=== PATIENT | female | born 1985 | race Caucasian/White ===

== ENCOUNTER 2021-07-16 14:20 | Outpatient (CLI) | payer BC, SELFPAY ==
--- NOTE | 2021-07-16 14:50 | DI.RAD_ITS ---
Exam(s) XR KNEE LT 3V AP,LAT,CANDI EXAM: XR KNEE LT 3V AP,LAT,CANDI CLINICAL HISTORY: LT KNEE EFFUSION M25.462. TECHNIQUE: 2D digital imaging was performed of the left knee. Three images were obtained. AP, late ral, Merchant and PA tunnel views were obtained. COMPARISON: No exams were available for comparison FINDINGS: BONES: No acute fracture is present. No bony destructive lesion is seen. JOINTS: The knee is normally aligned. There is a moderate-sized joint effusion. SOFT TISSUE: Normal. IMPRESSION: Moderate joint effusion. DATA REPOSITORY: RADIATION DOSE DELIVERED:
== END 2021-07-16 14:40 ==
PROVIDERS: Visit Provider Family Medicine
DX: M25.462 Effusion, left knee (principal)
CPT/HCPCS: 73562

== ENCOUNTER 2021-09-01 09:41 | Outpatient (CLI) | payer BC, SELFPAY ==
--- NOTE | 2021-09-01 07:13 | DI.MRI_ITS ---
Exam(s) MR LOWER JOINT LT WO EXAM: MR LOWER JOINT LT WO CLINICAL HISTORY: left knee injury continues to give out/ swelling,PAIN,M25.562,S83.412A,MCL. TECHNIQUE: Multiplanar multisequence MRI was performed. COMPARISON: CR XR KNEE LT 3V AP,LAT,CANDI from 07/16/2021 FINDINGS: BONES: Edema in the lateral femoral condyle. Some flattening at the articular surface with cysts sli ght declare video. Overlying cartilage is denuded. Findings could represent acute cartilage injury injury versus longstanding degenerative process. Is also high signal in a posterior aspect of the la teral tibial plateau which could represent a bone contusion. Cartilage overlying medial femoral cond yle and medial tibial plateau as well as patella appear intact.. JOINTS: Moderate size effusion is present. TENDONS: Extensor mechanism: Unremarkable. Medial retinaculum: Unremarkable. Lateral retinaculum: Unremarkable. Popliteus: Unremarkable. MUSCLES: Edema distal quadriceps. MENISCI: The medial meniscus is unremarkable. The lateral meniscus is unremarkable. SOFT TISSUES: Edema in the subcutaneous fat, greater anteriorly and medially. LIGAMENTS: Anterior Cruciate: Prior ACL repair. The ACL graft appears disrupted. Posterior Cruciate: Unremarkable. Medial Collateral:Marked edema around the femoral attachment of the medial collateral ligament Lateral Collateral: Unremarkable. OTHER: Postsurgical artifacts near patellar tendon. IMPRESSION: Disruption anterior cruciate ligament graft. Severe sprain versus of the medial collateral ligament near the femoral attachment. Marked cartilage thinning of the lateral femoral condyle acute versus chronic. Apparent contusions of the lateral femoral condyle and lateral tibial plateau. DATA REPOSITORY:
== END 2021-09-01 10:01 ==
PROVIDERS: PCP Physician Assistant Medical; Visit Provider Student in an Organized Health Care Education/Training Program
DX: M25.562 Pain in left knee (principal); S83.412A Sprain of medial collateral ligament of left knee, initial encounter; M25.462 Effusion, left knee; Z98.890 Other specified postprocedural states; M94.8X6 Other specified disorders of cartilage, lower leg
CPT/HCPCS: 73721

== ENCOUNTER 2021-12-28 02:33 | Outpatient (CLI) | payer BC, SELFPAY ==
[2021-12-28 12:15] LABS: Source Nasal/Nares
[2021-12-28 14:37] LABS: COVID-19 PCR Negative (Negative)
== END 2021-12-28 02:34 | disposition home or self-care (01) ==
LOC: LBO 02:33
PROVIDERS: PCP Physician Assistant Medical; Visit Provider Student in an Organized Health Care Education/Training Program
DX: Z20.822 Contact with and (suspected) exposure to COVID-19 (principal); Z01.818 Encounter for other preprocedural examination
CPT/HCPCS: 87635

== ENCOUNTER 2021-12-30 07:12 | Day surgery (SDC) | payer BC, SELFPAY ==
[2021-12-30] VITALS (12 sets, daily range): BP systolic 90–118; BP diastolic 51–77; PULSE 53–90; RESP 12–20; TEMP 36.3–36.8; O2SAT 96–100; BMI 25.4
[2021-12-30] MEDS: Lactated Ringers 1,000 ML 100 ML IV ×2 (08:15→14:04)
--- NOTE | 2021-12-30 08:30 | W.ANESPRE ---
General Info Date of Service Date Performed: 12/30/21 Height: 5 ft 9 in Weight: 78.1 kg Body Mass Index (BMI): 25.4 Surgical Procedure: Operation Date: 12/30/21 09:40 Proposed Procedure Side Surgeon p Knee ACL Reconstruction, Allograft and any meniscal, chondral or synovial surgery Left Juvenal Crouch MD Meds Allergies and Home Medications Allergies Allergy/AdvReac Type Severity Reaction Status Date / Time Sulfa (Sulfonamide Allergy Severe Hives Unverified 12/30/21 07:31 Antibiotics) Home Medication Medication Instructions Recorded aspirin 81 mg tablet,delayed 81 mg PO DAILY Prevent blood clot 12/30/21 release 14 days #14 tabs naproxen 250 mg tablet 250 - 500 mg PO BID PRN #40 tabs 12/30/21 oxycodone 5 mg tablet 5 - 10 mg PO Q4H PRN moderate to 12/30/21 severe pain #18 tabs Current Visit Medications: Current Medications Generic Name Dose Route Start Last Admin Trade Name Freq PRN Reason Stop Dose Admin Ringer's Solution 1,000 mls @ 100 mls/hr 12/30/21 06:00 12/30/21 08:15 IV 01/28/22 23:59 100 mls/hr INFUSION AMANDA Administration Cefazolin Sodium/Dextrose 2 gm in 50 mls @ 100 mls/hr 12/30/21 06:00 Ancef Duplex IVPB 01/28/22 23:59 PREOP AMANDA IV Miscellaneous Supplies 1 each 12/30/21 06:00 Iv Access IV 01/28/22 23:59 DIRECTED AMANDA Naproxen 250 - 500 mg 12/30/21 07:08 Naproxen 500 Mg Tab PO BID PRN PRN Oxycodone HCl 5 - 10 mg 12/30/21 07:08 Oxycodone 5 Mg Tab PO Q4H PRN PRN Sodium Chloride 0 ml 12/30/21 06:00 Normal Saline Flush 10 Ml Syr IV 01/28/22 23:59 PRN PRN Sodium Chloride 0 ml 12/30/21 06:00 Normal Saline 10 Ml Vial IJ 01/28/22 23:59 DIRECTED PRN Sterile Water 0 ml 12/30/21 06:00 Water,Injection,Sterile 10 Ml Vial IJ 01/28/22 23:59 DIRECTED PRN PFSH Active Problems Active Problems: Problem Status Onset Code Vaginal delivery 05/13/13 O80 MCL sprain of left knee S83.412A History of repair of ACL Z98.890 Left ACL tear S83.512A 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 Tonsillectomy and adenoidectomy CHILD `25 YRS AGO Tobacco Smoking/Tobacco Use Status: Never Alcohol Alcohol Intake: current Alcohol intake frequency: holidays/special occasions only Substance Use Substance use: Never Substance use type: does not use Vital Signs and Lab Results Vital Signs Most Recent Vital Signs in EMR: Most Recent Vital Signs Temp Pulse Resp BP Pulse Ox 36.6 C 90 17 116/75 100 12/30/21 07:51 12/30/21 07:51 12/30/21 07:51 12/30/21 07:51 12/30/21 07:51 Point of Care Results Point of Care Results: POC- Test(urine) Negative 12/30/21 07:56 Lab Results Blood Type / Crossmatch: No Data to Display Complete Blood Count: No Data to Display Complete Metabolic Panel: No Data to Display Liver Function Panel: No Data to Display Coagulation Panel: No Data to Display Cardiac Panel: No Data to Display Arterial Blood Gas: No Data to Display Venous Blood Gas: No Data to Display Pancreas Panel: No Data to Display Thyroid Panel: No Data to Display Infectious Disease: Coronavirus (COVID-19)(PCR) Negative (Negative) 12/28/21 08:32 Coronavirus 2019 Source Nasal/Nares 12/28/21 08:32 Blood Cultures: No Data to Display Toxicology Panel: No Data to Display Panel: No Data to Display Anesthesia Assessment and Plan Anesthesia History Personal History: No History of Anesthesia Complications Family History: No Family History of Anesthesia Complications Exercise Tolerance Exercise Tolerance: Metabolic Equivalents>4 Pertinent Negatives Pertinent Negatives: No Symptoms of GERD, No Major Cardiovascular Symptoms or Complaints and No Major Pulmonary Symptoms or Complaints Cardiac & Pulmonary Exam Cardiac Exam: Normal S1/S2 Heart Sounds Pulmonary Exam: Clear Bilateral Breath Sounds Implantable Cardiac Device Does patient have a Pacemaker or an ICD?: No Airway Exam Known Difficult Airway: No Mallampati Class: 2 Mouth Opening: Normal (> 3cm) Thyromental Distance: Greater than 3 cm Neck Range of Motion: Full ROM Neck Circumference: Normal Teeth Condition: Normal Dentition ASA Classification ASA Score: ASA 2 Emergency Case?: No NPO Status NPO Status: NPO Clears >2 hours, Solids >8 hours Status Status: Negative HCG Anesthesia Plan Resuscitation Status: Full Code Anesthesia Technique: General Anesthesia Airway Planned: Endotracheal Tube Pain Management: Surgeon and patient request nerve block Monitors Used: Standard Monitors
--- NOTE | 2021-12-30 10:15 | W.ANESNERVE ---
Nerve Block Single Injection Procedure Date and Time Date Performed: 12/30/21 Procedure Start: 10:05 Location Where Procedure Performed Procedure Location: Day Surgery Unit Reason Performed: Postoperative Analgesia Requesting Provider: Juvenal Crouch Timeout Performed Timeout Performed: Yes Monitoring Used ECG, Blood Pressure, SpO2 and See EMR for corresponding vital signs Sterility Sterility: Hand Hygiene, Surgical Cap, Surgical Mask, Sterile Gloves and Chlorhexidine Sedation Given During Procedure Sedation Given (Indicate Dose Given): No Sedation given Patient Mental Status Patient Mental Status: Awake Nerve Block 1st Nerve Block: Laterality: Left Block Type: Adductor Canal Needle / Catheter Used: 100mm SonoPlex II Local Anesthetic Bolus (Indicate Dose Given): Injected in 3-5ml increments after negative blood aspiration and Bupivacaine 0.5% Dose:: 20 ml Additives (Indicate Dose Given): None Ultrasound: Sterile probe cover and gel used Ultrasound Image Saved?: Yes Nerve Stimulator: Not Used Paresthesia: None Procedure Tolerated: No Complications and Patient tolerated well Procedure Outcome: Successful Performed By: Juve Bermudez
[2021-12-30] MEDS: ceFAZolin 2 GM/50 ML BAG IVPB (10:32)
[2021-12-30] MEDS: Bupivacaine 0.5% Pres-Free W/EPI 10 ML VIAL (11:18)
[2021-12-30] MEDS: EPINEPHrine 30 MG/30 ML VIAL (13:31)
--- NOTE | 2021-12-30 14:06 | PDOC.DSDIS_ITS ---
Discharge Plan Disposition Patient Disposition: HOME Condition: Stable Discharge Details Reason For Visit: Left knee surgery Attending Provider: Juvenal Crouch Primary Care Provider: Chio Sparks Home Meds and New Rx's Prescriptions: New naproxen 250 mg tablet 250 - 500 mg PO BID PRNQty: 40 0RF Rx Instructions: take with a meal aspirin 81 mg tablet,delayed release (DR/EC) 81 mg PO DAILY 14 Days Qty: 14 0RF oxycodone 5 mg tablet 5 - 10 mg PO Q4H MDD 30 mg PRN (Reason: moderate to severe pain) Qty: 18 0RF Discharge Instructions Additional Instructions: Surgery: Left knee arthroscopy with quadriceps allograft revision ACL reconstruction, lateral meniscus repair, and synovectomy. Activity: For 6 weeks, keep your knee fully straight for walking (weightbearing as tolerated in full extension). Use crutches as needed for a few weeks. Restore full knee extension as soon as possible. Do not bend your knee past 90 degrees. After 6 weeks, gently advance to full flexion but avoid any weighted deep knee flexion for 8+ weeks. A physical therapy prescription will be sent electronically to start in 2 to 3 weeks. Prescriptions: Aspirin 81 mg take 1 daily to prevent a blood clot for 14 days Naproxen 250 mg take 1-2 every 12 hours with a meal as needed for moderate pain Oxycodone 5 mg take 1-2 every 4-6 hours as needed for severe pain You may use [id number] Tylenol (acetaminophen) as needed for mild pain. These pain medications may be taken all at once or in different combinations as needed. Also, recommend Colace (docusate) as a stool softener as surgery and pain medicine cause constipation. You may try [id number] diphenhydramine (Benadryl) 25-50 mg nightly as a sleep aid Dressings: Leave dressing in place for 5 days. May then remove and leave open to air or cover incisions with Band-Aids. May shower after 7 days. Follow-up: 10-[address] Crouch Let us know right away if you develop any redness, drainage, fevers, chest pain, or trouble breathing. Do not drink alcohol or drive for at least 24 hours after anesthesia. Please call the office during business hours with any questions or concerns. Referrals: Juvenal Crouch MD [ [facility] STAFF PHYSICIAN] - Discharge Orders Discharge Orders: Discharge Order (Routine); Ordered 12/30/21 Ordered By: Juvenal Crouch DS: Diagnosis Discharge Diagnosis (1) Left ACL tear: Status: Acute (2) Chondromalacia of lateral femoral condyle: Status: Acute (3) Tear of lateral meniscus of left knee: Status: Acute (4) MCL sprain of left knee: Status: Acute
--- NOTE | 2021-12-30 14:31 | W.PM.OP ---
Operative Note Operative Note DATE OF PROCEDURE: 12/30/21 PRE-OP DIAGNOSIS: Left knee: 1. ACL rupture 2. Lateral meniscus tear 3. Intercondylar synovitis, patellofemoral adhesions, and medial and lateral gutter synovial plica PROCEDURE: Right knee: 1. Revision ACL reconstruction, CPT #84739: Quadriceps allograft 2. Lateral meniscus repair, CPT #73043 3. Extensive synovectomy, CPT #89190: Intercondylar, patellofemoral, and medial and lateral gutters SURGEON: Juvenal Crouch CINDER PIT WORKER: Beryl Landers ANESTHESIA TYPE: Local By Surgeon, General LMA/ETT and Primary Nerve Block Refer to Anesthesia Record ESTIMATED BLOOD LOSS: 10 TOURNIQUET TIME: 0 COMPLICATIONS: None Patient was transported to: PACU Patient's condition: stable Implants: Arthrex ACL TightRope II RT and ABS with 8 x 12 mm cortical button QuadLink pre-sutures quadriceps allograft: 10 x68 mm 0.9 mm suture tape lateral meniscus repair Indications: Please see complete medical record for details. Findings: Exam under anesthesia: Full range of motion. No significant instability to valgus stress in extension or flexion with solid end feel, but possibly a couple millimeters more laxity compared to the contralateral uninjured side. Positive Ronnie. Positive pivot glide. Arthroscopic findings: Moderate suprapatellar patellofemoral adhesions, medial and lateral gutter plica synovial adhesions, and intercondylar synovitis. Largely intact patellofemoral and medial articular cartilage. Localized distal lateral aspect lateral femoral condyle grade 2?3 chondromalacia. Intact medial meniscus. Intact PCL. Diminutive ACL remnant with minimal tissue in any anatomic location. Probable remnant high and vertical in the notch. Tibial orifice mild tunnel dilation. Posterior horn lateral meniscus complex tear. Procedure Description: In the operating room, general anesthesia was induced. The patient was positioned supine on the operating room table. All bony prominences were well-padded. Preoperative antibiotics were administered. The knee was prepped and draped in the usual sterile fashion. The correct patient, procedure, and side of the procedure were all verified prior to incision. Exam under anesthesia was performed. 20 cc of a 50:50 mixture of bupivacaine and lidocaine containing epinephrine was infiltrated about the planned anteromedial, anterolateral, lateral distal femoral, and pretibial surgery sites. The standard high and tight anterolateral and anteromedial portals were established and a complete diagnostic arthroscopy was performed with relevant findings detailed above. A passport cannula was inserted in both the anteromedial and anterolateral portals. The lateral meniscus tear was probed. The posterior horn had white zone vertical tears on the superior leaflet with fraying throughout the posterior horn near the popliteal hiatus around a large horizontal degenerative type meniscus tear. The white zone superior leaflet tears were resected to a stable margin using meniscal biters and mechanical shaver. The remaining red-white and red zone tissue was inspected about the horizontal tear. The tear propagated near the capsular margin so full resection would have involved essentially subtotal posterior horn meniscectomy. Instead, given patient young age and concomitant ACL surgery decision was made to proceed with repair. The meniscal rasp was used to abrade throughout the horizontal margin tissue to stimulate healing. The knee scorpion was brought in and used to pass a mini suture tape in a simple stitch fashion around the central aspect of the horizontal tear. The sutures demonstrated good tissue hold strength. They were secured with an SMC arthroscopic knot and the knot pusher used to carefully directed the small knot stack to the superior posterior capsular margin. The horizontal tear was well opposed and remaining meniscus did not demonstrate any additional significant tearing. In the intercondylar area, the knee minimal high vertical ACL remnant was inspected only minimally debrided as necessary to view in place graft in the proper position on the lateral wall. There was essentially an entirely empty lateral wall. A thin wisp of tissue traveled from about 12:00 down over the PCL vertically and did not have much integrity or continuity to the tibial side. There was a noticeable area of bone defect and softening around a reasonable tibial tunnel location and significant synovitis in the anterior intercondylar area. A small notchplasty was performed to allow proper visualization and probing of the elmm-biq-vmb position. There is scarring or remnant adhesions that had to be carefully removed with radiofrequency ablator, curette, mechanical shaver prior to restoring reasonable anatomic landmarks. A curette was used to confirm proximal and posterior articular margins and chris the optimal location for anatomic femoral tunnel placement with some bone softening in this position as well but no obvious prior tunnel nearby. The graft was measured and prepared on the back table. The TightRope II BTB and TightRope II ABS adjustable-loop cortical suspensory fixation implants were loaded on QuadLink pre-sutured quadriceps allograft. The femoral and tibial ends each measured 10 mm diameter. The graft was marked at 20 mm from each end just past the sutures on the ABS side, the tensioning sutures were marked and a shuttle suture was added. The graft was manually tensioned and the construct did not demonstrate any elongation. The graft was then compressed in a graft tube and covered with vancomycin soaked sponges. The femoral guide was then placed through the anterolateral portal carefully targeting the appropriate anatomic ACL origin. The outer 9 mm diameter of the guide was positioned with a few millimeters of space between the proximal and posterior articular margins. On the lateral thigh, drill guide position and angle adjusted to about 60 degree angle to the longitudinal axis of the femur in the coronal plane and 20 degree angle to the trans-epicondylar axis in the axial plane to create the most optimal femoral socket. Knife and snap were used to open the skin and IT band and placed the drill guide on bone while maintaining appropriate position on the lateral wall. The tunnel length was noted to be used for marking and passing the femoral button. The flip cutter was then drilled to the appropriate location. The drill guide malleted 7 mm into the cortex. The remainder of the targeting guide removed. The FlipCutter was deployed to 10 mm and retrograde reaming done to a depth of 30 mm. Bony debris was removed with the shaver. The flip cutter was then closed, withdrawn, and a FiberStick used to pass a #2 FiberWire shuttle stitch, which was withdrawn out the anterolateral portal. Appropriate posterior and distal wall and socket creation could be visualized with the knee in flexion. The tibial guide was then used to target the anatomic ACL insertion through the anteromedial portal. Significant anterior intercondylar adhesions and possible graft remnant or cyclops type tissue had debris removed with the radiofrequency ablator and mechanical shaver The drill angle adjusted to 60 degrees and a pretibial incision made. The drill guide was placed on bone, tunnel length noted, and the flip cutter drilled to the appropriate location near the center of the prior tunnel orifice. The drill guide malleted 7 mm into the cortex. The remainder of the targeting guide removed. The FlipCutter was deployed to 10mm and retrograde reaming done to a depth of 30 mm. Bony debris was removed with the shaver. The new socket was slightly eccentric to the prior tunnel position with some enlargement due to prior placement and dilation posteriorly and medially. Flip cutter was then closed, withdrawn, and a FiberStick used to pass a #2 FiberWire shuttle stitch, which was withdrawn out the anteromedial portal. The mechanical shaver was used to remove bone debris as well as chamfer and remove soft tissue from the edges of the sockets. A femoral shuttle sutures were withdrawn out the anterior medial portal. The PassPort was removed. This portal dilated to accommodate the graft size. The graft was brought over to the knee and the femoral sutures shuttled out the lateral thigh and advanced until the button was near cortex. Under arthroscopic visualization with the knee slightly hyperflexed, and the button was then passed and flipped on the far cortex. Counter traction was then maintained on the tibial side of the graft while it was carefully advanced into the knee and then about 15 mm into the femoral socket. The tibial sutures were then shuttled through the tibial tunnel and passing stitch moved while carefully noting the tension stitches. The graft was then dunked about 15 mm into the tibial socket. The ABS button was then loaded to the ABS loop and tension sutures used to bring the cortical button down to bone. The graft advanced about 20 mm into each socket and then provisionally tensioned on both the femoral and tibial sides. The knee was then cycled 22 times and final tightening done with the knee in full extension and a moderate reverse Ronnie maintained. The graft position and tension were appropriate. There was no impingement in full extension. There was a millimeter or so of widening at the orifice of the tibial tunnel relative to the graft due to the prior tunnel. Ronnie exam was stable. Femoral passing sutures were removed. Backup knots were then tied on both sides and suture tails cut. With the knee in full extension, attention was turned to the suprapatellar adhesions and an plica in the medial and lateral gutters. The meniscal biter was brought in and used to transect the synovial lesions and create a free edge for the mechanical shaver resection. The knee and all portals were copiously irrigated and then knee drained of arthroscopic fluid. 3-0 Monocryl was used to close the portals and small incisions in a buried interrupted fashion. Mastisol, Steri-Strips, Xeroform, 4 x 4 gauze, and sterile soft roll was applied. The extremity was wrapped gently with an Johnny bandage. A knee immobilizer was placed. The patient awoke from anesthesia without complication and was transferred to the recovery room in a stable condition.
--- NOTE | 2021-12-30 15:35 | W.ANESPOSTOP ---
Postoperative Evaluation Date, Time and Location Date Performed: 12/30/21 Time Performed: 15:35 Patient Location: PACU Vital Signs Most Recent Imported Vital Signs: Most Recent Vital Signs Temp Pulse Resp BP Pulse Ox 36.5 C 64 20 114/68 100 12/30/21 15:30 12/30/21 15:30 12/30/21 15:30 12/30/21 15:30 12/30/21 15:30 Pain Score Most Recent Pain Score: Most Recent Pain Score Pain Level 0 12/30/21 15:30 Assessment Mental Status: Awake (Alert & Oriented to Patient Baseline) Airway and Respiratory Function: Patent airway with normal (patient baseline) respiratory exam Cardiovascular Function: Hemodynamically Stable Hydration Status: Adequately Hydrated Nausea & Vomiting: No Nausea or Vomiting Pain: Pt. Denies Any Pain Peripheral Nerve Block: Regional nerve block not resolved at time of post operative discharge
== END 2021-12-30 16:39 | disposition home or self-care (01) ==
PROVIDERS: PCP Physician Assistant Medical; Visit Provider Student in an Organized Health Care Education/Training Program
PROC: (CPT 29888; principal; 2021-12-30 09:30)
DX: S83.512A Sprain of anterior cruciate ligament of left knee, initial encounter (principal); S83.282A Other tear of lateral meniscus, current injury, left knee, initial encounter; M94.262 Chondromalacia, left knee; M67.52 Plica syndrome, left knee; M23.8X2 Other internal derangements of left knee; W01.0XXA Fall on same level from slipping, tripping and stumbling without subsequent striking against object, initial encounter
CPT/HCPCS: 29888; 29882; 76942; 81025; J0690; J1100; J1885; J2405

== ENCOUNTER 2023-08-14 05:14 | Outpatient (CLI) | payer BC, SELFPAY ==
[2023-08-14 11:02] LABS: Panorama Kit Sent via Fed Ex
[2023-08-14 11:11] LABS: Abs Immature Grans 0.03 10^3/uL (0.0-0.06); Absolute Basophil Count 0.03 10^3/uL (0.0-0.2); Absolute Eosinophil Count 0.18 10^3/uL (0.0-0.7); Absolute Lymphocyte Count 1.67 10^3/uL (1.2-3.4); Absolute Monocyte Count 0.57 10^3/uL (0.1-0.8); Absolute Neutrophil Count 4.74 10^3/uL (1.2-6.7); Basophils % 0.4; Eosinophils % 2.5; HCT 37.2 % (36.0-46.0); HGB 12.9 g/dL (11.2-15.7); Immature Grans % 0.4; Lymphocytes % 23.1; MCHC 34.7 % (32.0-36.0); MCV 84 fL (80-95); Monocytes % 7.9; Neutrophils % 65.7; Platelet Count 254 10^3/uL (130-400); RBC 4.45 10^6/uL (3.93-5.22); RDW 13.2 % (11.7-14.6); RDW-SD 40.5 fL; WBC 7.22 10^3/uL (4.4-10.8)
[2023-08-14 19:38] LABS: Hepatitis B Surface Ag Negative (Negative)
[2023-08-14 20:11] LABS: HIV-1/2 Ag & Ab Screen Negative (Negative)
[2023-08-14 20:15] LABS: Hepatitis C Ab w Rflx HCV PCR Negative (Negative)
[2023-08-15 11:46] LABS: Rubella IgG Ab (UVM) Positive (See Note); Varicella IgG Antibody Positive (See Note)
[2023-08-15 20:55] LABS: Syphilis IgG w/Reflex Nonreactive (Nonreactive)
== END 2023-08-14 05:15 | disposition home or self-care (01) ==
LOC: LBO 05:14
PROVIDERS: PCP Physician Assistant Medical; Visit Provider Advanced Practice Midwife
DX: Z34.91 Encounter for supervision of normal pregnancy, unspecified, first trimester
CPT/HCPCS: 36415; 86787; 86803; 86850; 86900; 86901; 87340; 87389; 85025; 86762; 86780

== ENCOUNTER 2023-08-14 11:40 | Outpatient (REF) | payer BC, SELFPAY ==
--- NOTE | 2023-08-14 10:00 | PAPFT_PTH ---
PATIENT: Mario Villafana LOC: [facility] U#:[id number] AGE/SX: 38/F ROOM: RE08/14/[address]: Theresa Chapin CNM : 1985 BED: DIS: 08/14/2023 SPEC #: [id number] RECD: 08/14/23 13:17 STATUS: LYDIA REEmma #: [id number] LORENA: 08/14/23 10:[address]: Theresa Chapin DEPT: FOR[facility], [facility]–1983 Cytology RECD BY: Linda Kidd ENTERED: 08/14/23 13:17 SP TYPE: PAPFT OTHR DR: Chio Sparks Tissues: 1 - CX/ENDOCX FOR PAP SMEARS Procedures: PAP THIN PREP/[facility] Screening HPV DNA PROBE Comments: [id number] (CHLAMYDIA/GC)
[2023-08-15 16:39] LABS: Chlamydia Result Negative (Negative); GC Result Negative (Negative)
== END 2023-08-14 11:41 | disposition home or self-care (01) ==
LOC: LBN 11:40
PROVIDERS: PCP Physician Assistant Medical; Visit Provider Advanced Practice Midwife
DX: Z01.419 Encounter for gynecological examination (general) (routine) without abnormal findings (principal)
CPT/HCPCS: 87491; 87591; 88142; 87624

== ENCOUNTER 2023-08-14 11:45 | Outpatient (REF) | payer BC, SELFPAY ==
[2023-08-14 15:25] LABS: *AMPHETAMINES SCREEN URINE Negative (Negative); *BARBITURATES SCREEN URINE Negative (Negative); *BENZODIAZEPINES SCREEN URINE Negative (Negative); Cannabinoids THC Negative (Negative); Cocaine Screen,Urine Negative (Negative); METHADONE URINE SCREEN Negative (Negative); OPIATES URINE SCREEN Negative (Negative)
[2023-08-14 15:26] LABS: Tricyclic Antidepressants Negative (Negative)
[2023-08-18 08:52] LABS: Buprenorphine Negative ng/mL (Cutoff: 5.0); Norbuprenorphine Negative ng/mL (Cutoff: 2.5)
== END 2023-08-14 11:46 | disposition home or self-care (01) ==
LOC: LBN 11:45
PROVIDERS: PCP Physician Assistant Medical; Visit Provider Advanced Practice Midwife
DX: Z34.91 Encounter for supervision of normal pregnancy, unspecified, first trimester (principal)
CPT/HCPCS: 80307; 80348; 87077; 87086

== ENCOUNTER 2023-11-28 05:37 | Outpatient (CLI) | payer BC, SELFPAY ==
[2023-11-28 10:13] LABS: HCT 31.6 % (36.0-46.0); HGB 10.8 g/dL (11.2-15.7); MCH 29.8 pg (27.0-33.0); MCHC 34.2 % (32.0-36.0); MCV 87 fL (80-95); MPV 8.6 fL (8.0-11.0); Platelet Count 182 10^3/uL (130-400); RBC 3.63 10^6/uL (3.93-5.22); RDW 12.9 % (11.7-14.6); RDW-SD 40.9 fL; WBC 8.49 10^3/uL (4.4-10.8)
[2023-11-28 10:27] LABS: Glucose,1 Hr (Glucola) 163 mg/dL (80-140)
== END 2023-11-28 05:38 | disposition home or self-care (01) ==
LOC: LBO 05:37
PROVIDERS: Advanced Practice Midwife; PCP Physician Assistant Medical; Visit Provider Advanced Practice Midwife
DX: Z34.92 Encounter for supervision of normal pregnancy, unspecified, second trimester (principal); Z3A.27 27 weeks gestation of pregnancy
CPT/HCPCS: 36415; 82950; 85027

== ENCOUNTER 2023-11-30 05:02 | Outpatient (CLI) | payer BC, SELFPAY ==
[2023-11-30 09:07] LABS: Glucose 1 Hour 149 mg/dL
[2023-11-30 10:58] LABS: Glucose 3 Hour 56 mg/dL
== END 2023-11-30 05:03 | disposition home or self-care (01) ==
LOC: LBO 05:02
PROVIDERS: Advanced Practice Midwife; PCP Physician Assistant Medical; Visit Provider Advanced Practice Midwife
DX: R73.09 Other abnormal glucose (principal)
CPT/HCPCS: 36415; 82951

== ENCOUNTER 2024-02-03 08:37 | Outpatient (CLI) | payer BC, SELFPAY ==
[2024-02-03 10:10] VITALS: BP 103/64; PULSE 96
[2024-02-03 10:43] VITALS: BP 103/64; PULSE 96; TEMP 36.4
--- NOTE | 2024-02-03 22:12 | W.OBNST ---
Date of service: 02/03/24 Time of Service: 22:13 NST Evaluation Reason for NST Reasons for Nonstress Test: OTHER, SEE COMMENT Reason for NST Other: Vision changes Gestational Age Gestational Age in Weeks and Days: 36 Weeks and 3Days Test and Monitor Explained Test/Monitor Explained: Test Explained, Monitor Explained and Patient Verbalized Understanding Vital Signs Blood Pressure: 103/64 Pulse: 96 Temperature: 97.5 F Urine Results Urine Protein: Negative Urine Ketones: Negative Urine Glucose: Negative Urine Blood: Negative NST Information Date on Monitor: 02/03/24 Time on Monitor: 10:09 Date off Monitor: 02/03/24 Time off Monitor: 10:42 Total Time on Monitor: 33 NST Interventions: PO Hydration, Reposition Patient and Notify Provider Contraction Frequency: 0 NST Evaluation Patient States Movement: Present FHR Baseline: 135 Variability: Moderate 6-25 bpm Accelerations: 15x15 Decelerations: None NST Results: Reactive Note Ultrasound Done: N/A. NST Note Note: Mario experienced a visual disturbance while looking at her phone during the night. She was instructed to come in for a blood pressure check and NST. BP was WNL and reactive NST. Follow up visit at [facility]. NST Reviewed and Verified by: Deborah Hutton
[2024-02-03 22:14] VITALS: BP 103/64; PULSE 96; TEMP 36.4
== END 2024-02-03 10:44 ==
LOC: BCD 08:39 → OBS 10:05
PROVIDERS: PCP Physician Assistant Medical; Visit Provider Advanced Practice Midwife
DX: O26.893 Other specified pregnancy related conditions, third trimester (principal); H53.9 Unspecified visual disturbance; Z3A.36 36 weeks gestation of pregnancy
CPT/HCPCS: 59025

== ENCOUNTER 2024-02-06 09:46 | Outpatient (CLI) | payer BC, SELFPAY ==
[2024-02-06 09:40] LABS: HCT 32.5 % (36.0-46.0); HGB 11.2 g/dL (11.2-15.7); MCH 29.9 pg (27.0-33.0); MCHC 34.5 % (32.0-36.0); MCV 87 fL (80-95); MPV 8.8 fL (8.0-11.0); Platelet Count 185 10^3/uL (130-400); RBC 3.74 10^6/uL (3.93-5.22); RDW 13.6 % (11.7-14.6); WBC 8.55 10^3/uL (4.4-10.8)
== END 2024-02-06 09:47 | disposition home or self-care (01) ==
LOC: LBO 09:47
PROVIDERS: PCP Physician Assistant Medical; Visit Provider Advanced Practice Midwife
DX: Z34.90 Encounter for supervision of normal pregnancy, unspecified, unspecified trimester (principal)
CPT/HCPCS: 36415; 85027

== ENCOUNTER 2024-02-14 22:41 | Observation (INO) | payer BC, SELFPAY ==
--- NOTE | 2024-02-14 23:33 | HPE_ITS ---
Date of service: 02/14/24 Time of Service: 23:10 Assessment and Plan Assessment and plan (1) False labor after 37 completed weeks of gestation: Status: Acute Assessment and plan: 1. Reviewed option to remain and be reassessed in 2-4 hours for cervical change. Patient prefer to go home and return with any increase in contraction intensity. Reports she will be able to sleep through these 2. Has follow up visit < 1 week 3. Plan to discharge to home per patient request. MARICEL OB-HPI Labor/Delivery History of Present Illness Reason for Visit: Uterine contractions Chief Complaint: Uterine Contractions. CAROLANN Calculator Estimated Delivery Date Method Current WG Current Estimate 02/28/24 LMP (Certain) 38w 0d Other Estimates 02/28/24 Ultrasound #1 38w 0d Comments: Mario presents with contractions every 3 minutes and some bloody show off and on since yesterday. Denies ROM. Baby has been active. She wanted to be assessed as she had GBS UTI in early and is concerned about getting antibiotics in. MARICEL History of Present Expected Delivery Route/Plan - CNM FOB/ - Raj Villafana (5th child together) BB no circ Plan PCN prophylaxis in labor d/t GBS in urine during , pt agrees Unmedicated low intervention experience desired, stays active during labor Specific Issues/Plan 1. s/p vasectomy, spont conception anyway - seeing urology for f/u 2. AMA, cfDNA=low risk x5 male, declines level 2/MF consult 3. Mild Reynauds Sx, fingers turn blue now and then, no pain 4. GBS+ on initial UC&S (<50,000), no Rx indicated, advise PCN prophylaxis in labor 5. Desires TL if CS, consult 12/26/23. Has private insurance, no consent needed. 6. At 27 wks, glucola result 163; 3 hr GTT nml x4 7. Mild anemia @ 27 wks, hgb 10.8, advised to start oral iron supplement Assessment: History Reviewed & Current Review of Systems All systems reviewed & are unremarkable except as noted in HPI and below (no other concerns) PFSH All Active Problems (Updated 02/14/24 @ 23:39 by Deborah Matamoros CNM) False labor after 37 completed weeks of gestation (Acute) Elevated glucose level (Acute) ASB (asymptomatic bacteriuria) (Acute) Advanced maternal age in multigravida (Acute) (Acute) Medical History Missed menses Tear of lateral meniscus of left knee Chondromalacia of lateral femoral condyle Left ACL tear Vaginal delivery (05/13/13) x4 Hx of ovarian cyst History of anemia Hx of hypotension History of COVID-19 10/19 MCL sprain of left knee Surgical History Status post reconstruction of anterior cruciate ligament (12/30/21) Revision ACL reconstruction with quadriceps allograft, lateral meniscus repair and extensive synovectomy Dr. Crouch Hx of wisdom tooth extraction History of repair of ACL 2006 Dr Krishnamurthy Tonsillectomy and adenoidectomy CHILD `25 YRS AGO Repair, ACL L KNEE W/O C/O. Family History Mother Breast cancer in remission Maternal Grandmother Breast cancer Colon cancer Cancer, uterine Diabetes Paternal Grandfather Cancer Heart disease Paternal Grandmother Heart disease Social History Smoking/Tobacco Use Status: Never Smoking risk assessment performed?: Yes Alcohol Intake: current Alcohol Intake frequency: holidays/special occasions only Drug use: Never Substance use type: does not use Current gender identity: female Do you feel safe at home: Yes Do you feel safe in your relationship?: Yes History History 6 Para 4 Hx # Term Pregnancies 4 Multiple births 0 Hx # Pregnancies 0 Ectopic pregnancies 0 AB induced 0 Hx Number of Living Children 4 AB spontaneous 1 Past Pregnancies Del. Date GA/Weeks # Preg Succ Route Wgt Sex Labor Lgth Anesth esia Location Prov Complic 05/11/08 40 No Yes vaginal 7 lb 12 oz Male 10 hrs [place], [place] 03/16/11 41 No Yes vaginal 7 lb 8 oz Male <10 hrs Ane a 05/13/13 40 No Yes vaginal 6 lb 12 oz Female 8 hrs Ane a 10/12/14 40 No Yes vaginal 7 lb 10 oz Male 12 hrs Ane a Delivery Date: 05/11/08 Last Updated by: Theresa Chapin unmedicated nml [place] Delivery Date: 03/16/11 Last Updated by: Theresa Chapin nml Nas Delivery Date: 05/13/13 Last Updated by: Theresa Chapin nml Teresa Delivery Date: 10/12/14 Last Updated by: Theresa Chapin nml Uri Meds Allergies and Home Medications Allergies Allergy/AdvReac Type Severity Reaction Status Date / Time Sulfa (Sulfonamide Allergy Severe Hives Unverified 02/14/24 23:39 Antibiotics) Home Medications ?Medication ?Instructions ?Recorded ?Confirmed ?Type vitamin#30 30 mg iron-10 cap PO 07/10/23 02/13/24 History mg iron-folic acid 1 mg-omg3 capsule ferrous sulfate 325 mg (65 mg 325 mg PO DAILY #60 tabs 11/28/23 02/13/24 Rx iron) tablet,delayed release Exam Constitutional Constitutional: no acute distress (reports she could sleep through contractions) Detailed Labor and Delivery Exam Dilation: 2 Effacement (%): 60 station: -2 Cervix position: posterior Consistency: medium Paige Score: Cervical Points Exam 0 1 2 3 Dilation Closed 1-2cm 3-4 cm 5-6cm Effacement 0-30% 40-50% 60-70% 80% Consistency Firm Medium Soft Station -3 -2 -1,0 +1,+2 Position Posterior Mid Anterior PAIGE Score(Cervical Ripeness Score): 5 Amniotic Membrane Status: Intact Fetus A Heart Rate Baseline: 120 Monitor Accelerations: 15 X 15 Monitor Decelerations: Variable (X2 in 20 minutes, resolved with position changes) Variability: Moderate (6-25 BPM) Categories: Category I HEENT Exam HEENT Exam: Normal Neck Exam Neck Exam: Normal (visual exam) Respiratory Exam Respiratory Exam: Normal Abdominal Exam Abdominal Exam: Normal (gravid uterus, size equals dates) Exam Exam: Normal (small amount of bloody discharge after cervical exam) Extremities Exam Extremities Exam: Normal Back/Spine/Pelvis Exam Pelvis Adequate: Yes Skin Exam Skin Exam: Normal Neurological Exam Neurological Exam: Normal Psychiatric Exam Psychiatric Exam: Normal Risk Assessment Risk for Shoulder Dystocia Historical/Initial OB: NEGATIVE FOR: Pelvic Abnormality, Pre- BMI>30, Previous Shoulder Dystocia or Previous Macrosomia Risk for Pre-Eclampsia Date Initiated/Initials: not indicated, JK Yes, if one or more: NEGATIVE FOR: Hx Pre-E/Gest HTN, Chronic HTN, Multiple Gestation, Pre-gestational DM, Renal Disease, Systemic Lupus or APA Syndrome Yes, if 2 or more: POSITIVE FOR: Age>= 35 yrs; NEGATIVE FOR: Nulliparity, >10yr btwn pregnancies, BMI>30, ethinicty, Mother/Sister w/ Pre-E or Previous IUGR Risk for Post- Hemorrhage Initial: NEGATIVE FOR: Multiple Gestation, Previous PPH, Known Clotting Deficiency, Grand Multiparity or Anticoagulation Risks Reviewed Risks Reviewed Upon Admission: Yes (low risk)
--- NOTE | 2024-02-14 23:43 | DSE_ITS ---
Date of service: 02/14/24 Time of Service: 23:25 DS: Diagnosis Discharge Diagnosis (1) False labor after 37 completed weeks of gestation: Status: Acute Asessment and Plan: 1. Not in active labor 2. Reassuring status 3. Discharged to home per patient preference (offered extended period of observation in the hospital and declined) 4. Reviewed signs of labor and or ROM 5. Keep next appointment as scheduled. Discharge Plan Disposition Patient Disposition: Home Condition: Good Discharge Details Reason For Visit: Uterine contractions Admit Date/Time: 02/14/24 22:41 Admit Provider: Deborah Matamoros Attending Provider: Deborah Matamoros Primary Care Provider: Chio Sparks Hospital Course Hospital Course: Observed X 40 minutes, VE 2/60/-2 medium consistency and posterior with [place] of 5. Patient preferred to go home and will return if contractions are more intense or ROM occurs to begin her GBS prophylaxis. Home Meds and New Rx's Prescriptions: Continued PNV #[id number] 30 mg iron-10 mg iron-1 mg capsule PO ferrous sulfate 325 mg (65 mg iron) tablet,delayed release (DR/EC) 325 mg PO DAILY Qty: 60 5RF Discharge Instructions Activity:: Activity as Tolerated Equipment/Supplies:: No Equipment Needed Diet:: As Tolerated Discharge Orders Discharge Orders: Discharge Order (Routine); Ordered 02/14/24 Ordered By: Deborah Matamoros Discharge Data Discharge Date/Time-TO BE ENTERED AT DEPARTURE: 02/14/24 23:36 OB:DS Summary Summary Procedures: antepartum paitent Contraception Discussed Contraception Discussed: Yes (vasectomy done), Status at Discharge Functional status at discharge: independent ambulation Overall status at discharge: patient is back to baseline Mental Status: mental status grossly normal Speech and Movement: speech and movement normal Mood: congruent mood Affect: normal affect Time Spent with Patient providing and/or coordinating discharge services: Less than 30 minutes Quality:SDOH Health Related Social Needs: No Data to Display Exam Constitutional Constitutional: no acute distress HEENT Exam HEENT Exam: Normal Neck Exam Neck Exam: Normal Respiratory Exam Respiratory Exam: Normal Abdominal Exam Comments: gravid uterus, size equals dates Extremities Exam Extremity Exam: Normal Skin Exam Skin Exam: Normal Neurological Exam Neurological Exam: Normal Psychiatric Exam Psychiatric Exam: Normal PFSH All Active Problems (Updated 02/14/24 @ 23:39 by Deborah Matamoros CNM) False labor after 37 completed weeks of gestation (Acute) Elevated glucose level (Acute) ASB (asymptomatic bacteriuria) (Acute) Advanced maternal age in multigravida (Acute) (Acute) Medical History Missed menses Tear of lateral meniscus of left knee Chondromalacia of lateral femoral condyle Left ACL tear Vaginal delivery (05/13/13) x4 Hx of ovarian cyst History of anemia Hx of hypotension History of COVID-19 10/19 MCL sprain of left knee Surgical History Status post reconstruction of anterior cruciate ligament (12/30/21) Revision ACL reconstruction with quadriceps allograft, lateral meniscus repair and extensive synovectomy Dr. Crouch Hx of wisdom tooth extraction History of repair of ACL 2006 Dr Krishnamurthy Tonsillectomy and adenoidectomy CHILD `25 YRS AGO Repair, ACL L KNEE W/O C/O. Family History Mother Breast cancer in remission Maternal Grandmother Breast cancer Colon cancer Cancer, uterine Diabetes Paternal Grandfather Cancer Heart disease Paternal Grandmother Heart disease Social History Smoking/Tobacco Use Status: Never Smoking risk assessment performed?: Yes Alcohol Intake: current Alcohol Intake frequency: holidays/special occasions only Drug use: Never Substance use type: does not use Current gender identity: female Do you feel safe at home: Yes Do you feel safe in your relationship?: Yes History History 6 Para 4 Hx # Term Pregnancies 4 Multiple births 0 Hx # Pregnancies 0 Ectopic pregnancies 0 AB induced 0 Hx Number of Living Children 4 AB spontaneous 1 Past Pregnancies Del. Date GA/Weeks # Preg Succ Route Wgt Sex Labor Lgth Anesth esia Location Prov Complic 05/11/08 40 No Yes vaginal 7 lb 12 oz Male 10 hrs [place] 03/16/11 41 No Yes vaginal 7 lb 8 oz Male <10 hrs Ane a 05/13/13 40 No Yes vaginal 6 lb 12 oz Female 8 hrs Ane a 10/12/14 40 No Yes vaginal 7 lb 10 oz Male 12 hrs Ane a Delivery Date: 05/11/08 Last Updated by: Theresa Chapin unmedicated nml [place] Delivery Date: 03/16/11 Last Updated by: Theresa Chapin nm Nas Delivery Date: 05/13/13 Last Updated by: Theresa Chapin [facility] Teresa Delivery Date: 10/12/14 Last Updated by: Theresa Chapin [facility] Uri
== END 2024-02-14 23:36 | disposition home or self-care (01) ==
LOC: OBS 22:45
PROVIDERS: Admitting Provider Advanced Practice Midwife; PCP Physician Assistant Medical; Visit Provider Advanced Practice Midwife
DX: O47.1 False labor at or after 37 completed weeks of gestation (principal); Z3A.37 37 weeks gestation of pregnancy; O99.820 Streptococcus B carrier state complicating pregnancy; O99.413 Diseases of the circulatory system complicating pregnancy, third trimester; O99.013 Anemia complicating pregnancy, third trimester; D64.9 Anemia, unspecified; O09.523 Supervision of elderly multigravida, third trimester; I73.00 Raynaud's syndrome without gangrene

== ENCOUNTER 2024-03-02 23:07 | Inpatient (IN) | payer BC, SELFPAY ==
[2024-03-02 22:54] VITALS: BP 123/74; PULSE 69
[2024-03-02 23:26] VITALS: BP 123/74; PULSE 93; RESP 16; TEMP 36.6
[2024-03-02 23:34] LABS: HCT 34.1 % (36.0-46.0); HGB 11.4 g/dL (11.2-15.7); MCH 29.1 pg (27.0-33.0); MCHC 33.4 % (32.0-36.0); MCV 87 fL (80-95); MPV 9.5 fL (8.0-11.0); Platelet Count 182 10^3/uL (130-400); RBC 3.92 10^6/uL (3.93-5.22); RDW 13.4 % (11.7-14.6); RDW-SD 41.7 fL; WBC 10.22 10^3/uL (4.4-10.8)
--- NOTE | 2024-03-02 23:39 | HPE_ITS ---
Date of service: 03/02/24 Time of Service: 23:39 Assessment and Plan Assessment and plan (1) Spontaneous onset of labor: Status: Acute Assessment and plan: Admit to Center and routine admission labs. Comfort measures. Anticipate . (2) Group B streptococcal infection during : Status: Acute Assessment and plan: Antibiotics per protocol for GBS prophylaxis OB-HPI Labor/Delivery History of Present Illness Reason for Visit: Labor Chief Complaint: Uterine Contractions. CAROLANN Calculator Estimated Delivery Date Method Current WG Current Estimate 02/28/24 LMP (Certain) 40w 3d Other Estimates 02/28/24 Ultrasound #1 40w 3d Comments: Mario called and reports strong contractions every 6 minutes at home. History of Present Expected Delivery Route/Plan - CNM FOB/ - Raj Villafana (5th child together) BB no circ Plan PCN prophylaxis in labor d/t GBS in urine during , pt agrees Unmedicated low intervention experience desired, stays active during labor Specific Issues/Plan 1. s/p vasectomy, spont conception anyway - seeing urology for f/u 2. AMA, cfDNA=low risk x5 male, declines level 2/MF consult 3. Mild Reynauds Sx, fingers turn blue now and then, no pain, denies nipple pain. 4. GBS+ on initial UC&S (<50,000), no Rx indicated, advise PCN prophylaxis in labor 5. Desires TL if CS, MD consult 12/26/23. Has private insurance, no consent needed. 6. At 27 wks, glucola result 163; 3 hr GTT nml x4 7. Mild anemia @ 27 wks, hgb 10.8, advised to start oral iron supplement Assessment: History Reviewed & Current [facility] All Active Problems (Updated 03/02/24 @ 23:46 by Deborah Hutton CNM) Group B streptococcal infection during (Acute) Spontaneous onset of labor (Acute) Elevated glucose level (Acute) ASB (asymptomatic bacteriuria) (Acute) Advanced maternal age in multigravida (Acute) (Acute) Medical History Missed menses Tear of lateral meniscus of left knee Chondromalacia of lateral femoral condyle Left ACL tear Vaginal delivery (05/13/13) x4 Hx of ovarian cyst History of anemia Hx of hypotension History of COVID-19 10/19 MCL sprain of left knee Surgical History Status post reconstruction of anterior cruciate ligament (12/30/21) Revision ACL reconstruction with quadriceps allograft, lateral meniscus repair and extensive synovectomy Dr. Crouch Hx of wisdom tooth extraction History of repair of ACL 2006 Dr Krishnamurthy Tonsillectomy and adenoidectomy CHILD `25 YRS AGO Repair, ACL L KNEE W/O C/O. Family History Mother Breast cancer in remission Maternal Grandmother Breast cancer Colon cancer Cancer, uterine Diabetes Paternal Grandfather Cancer Heart disease Paternal Grandmother Heart disease Social History Smoking/Tobacco Use Status: Never Smoking risk assessment performed?: Yes Alcohol Intake: current Alcohol Intake frequency: holidays/special occasions only Drug use: Never Substance use type: does not use Housing: house Current gender identity: female Do you feel safe at home: Yes Do you feel safe in your relationship?: Yes History History 6 Para 4 Hx # Term Pregnancies 4 Multiple births 0 Hx # Pregnancies 0 Ectopic pregnancies 0 AB induced 0 Hx Number of Living Children 4 AB spontaneous 1 Past Pregnancies Del. Date GA/Weeks # Preg Succ Route Wgt Sex Labor Lgth Anesth esia Location Prov [facility] 05/11/08 40 No Yes vaginal 7 lb 12 oz Male 10 hrs [place], [place] 03/16/11 41 No Yes vaginal 7 lb 8 oz Male <10 hrs Ane a 05/13/13 40 No Yes vaginal 6 lb 12 oz Female 8 hrs Ane a 10/12/14 40 No Yes vaginal 7 lb 10 oz Male 12 hrs Ane a Delivery Date: 05/11/08 Last Updated by: Theresa Chapin unmedicated nml [place] Delivery Date: 03/16/11 Last Updated by: Theresa Chapin nml Nas Delivery Date: 05/13/13 Last Updated by: Theresa Chapin nml Teresa Delivery Date: 10/12/14 Last Updated by: Theresa Chapin nml Martin Meds Allergies and Home Medications Allergies Allergy/AdvReac Type Severity Reaction Status Date / Time Sulfa (Sulfonamide Allergy Severe Hives Unverified 02/28/24 09:06 Antibiotics) Home Medications ?Medication ?Instructions ?Recorded ?Confirmed ?Type vitamin#30 30 mg iron-10 cap PO 07/10/23 02/28/24 History mg iron-folic acid 1 mg-omg3 capsule ferrous sulfate 325 mg (65 mg 325 mg PO DAILY #60 tabs 11/28/23 02/28/24 Rx iron) tablet,delayed release Exam Physical Exam Vital signs: Temp Pulse Resp BP 98 F 93 H 16 123/74 03/02/24 23:26 03/02/24 23:26 03/02/24 23:26 03/02/24 23:26 Vital Signs Reviewed: Yes Constitutional Constitutional: no acute distress Detailed Labor and Delivery Exam Dilation: 2 Effacement (%): 70 Cervix position: anterior Consistency: soft Pineda Score: Cervical Points Exam 0 1 2 3 Dilation Closed 1-2cm 3-4 cm 5-6cm Effacement 0-30% 40-50% 60-70% 80% Consistency Firm Medium Soft Station -3 -2 -1,0 +1,+2 Position Posterior Mid Anterior Amniotic Membrane Status: Intact Rupture Method: Spontaneous Monitor Mode: External Contraction Frequency(min): every 3 min. Contraction Duration(sec): 60 Contraction Intensity: Moderate/Strong Fetus A Heart Rate Baseline: 120 Monitor Accelerations: 15 X 15 Monitor Decelerations: None Variability: Moderate (6-25 BPM) Presentation: Cephalic Categories: Category I Est. Weight: 7 lb HEENT Exam HEENT Exam: Normal Chest/Brest/Axilla Exam Chest Exam: Normal Respiratory Exam Respiratory Exam: Normal Cardiovascular Exam Cardiovascular Exam: Normal Abdominal Exam Abdominal Exam: Normal Exam Exam: Normal Extremities Exam Extremities Exam: Normal Skin Exam Skin Exam: Normal Psychiatric Exam Psychiatric Exam: Normal Results Abnormal Lab Findings: Abnormal Labs 03/02/24 23:16 RBC 3.92 L Hct 34.1 L Risk Assessment Risk for Shoulder Dystocia Historical/Initial OB: NEGATIVE FOR: Pelvic Abnormality, Pre- BMI>30, Previous Shoulder Dystocia or Previous Macrosomia 36 Weeks: NEGATIVE FOR: Current Gestational DM, EFW>4500gms or Maternal Weight Gain>40lbs 40 Weeks: NEGATIVE FOR: EFW> 4500 gms, Maternal Weight Gain >40lb or Post Dates Delivery Plan @ 36wks: Risk for Pre-Eclampsia Date Initiated/Initials: not indicated, JK Yes, if one or more: NEGATIVE FOR: Hx Pre-E/Gest HTN, Chronic HTN, Multiple Gestation, Pre-gestational DM, Renal Disease, Systemic Lupus or APA Syndrome Yes, if 2 or more: POSITIVE FOR: Age>= 35 yrs; NEGATIVE FOR: Nulliparity, >10yr btwn pregnancies, BMI>30, ethinicty, Mother/Sister w/ Pre-E or Previous IUGR Risk for Post- Hemorrhage Initial: POSITIVE FOR: Grand Multiparity; NEGATIVE FOR: Multiple Gestation, Previous PPH, Known Clotting Deficiency or Anticoagulation 36 Weeks: NEGATIVE FOR: Anemia, hgb<10, Low platelets(thrombocytopenia), Gestational HTN or Pre-E, Polyhydraminios or EFW>4500gms 40 Weeks: NEGATIVE FOR: Anemia, hgb<10, Low platelets (thrombocytopenia), Gestat ion HTN or Pre-E, Polyhydraminios or EFW>4500gms At Risk?: Yes (grand multiparity) Risks Reviewed Risks Reviewed Upon Admission: Yes
[2024-03-03] VITALS (12 sets, daily range): BP systolic 98–114; BP diastolic 52–74; PULSE 67–103; RESP 18–20; TEMP 36.8
[2024-03-03] MEDS: Normal Saline Flush 10 ML SYR IVP (00:11)
[2024-03-03] MEDS: Oxytocin/Normal Saline 30 UNIT/500 ML BAG 95 UNITS IV (03:10)
[2024-03-03] MEDS: Acetaminophen 325 MG TAB 650 MG PO ×4 (03:42→23:48)
[2024-03-03] MEDS: Ibuprofen 600 MG TAB PO ×4 (03:42→23:49)
--- NOTE | 2024-03-03 13:33 | W.OBDELIVERY ---
Date of service: 03/03/24 Time of Service: 05:00 OB Labor/ Delivery Information Baby A Delivery Delivery Method: Spontaneaous Presentation: Cephalic Vertex Position: Left Occipital Anterior Cord Description-Baby A: 3 Vessels Amniotic Fluid: Clear Estimated Blood Loss: 300 Delivery Outcome: Liveborn Transferred: Remains with Mother Note: Mario used the shower and ambulated for comfort and received good support from her . FHTs 118-120 during first stage of labor. FHTs 120 in second stage. SROM occurred. A forbag was ruptured and she progressed to full dilation and began pushing. Second stage huddle was done. Spontaneous delivery of male infant delivered in SHAYY position. Baby was placed on mother's abdomen and dried and stimulated. Spontaneous cry. Cord was clamped and cut by the baby's aunt, Chana Eugene. The placenta delivered spontaneously and appears to by intact with a three vessel cord. Pitocin 30 units was administered IV after delivery of the placenta. The perineum was inspected and was intact. The baby did breastfeed. After delivery, Mother and baby and father of the baby were stable and bonding well in the delivery room and there were no complications. Providers Nurse Access Control Specialist: Deborah Hutton Window Systems Administrator: Mary Sampson Nurse: Shanna Basurto Nurse: Chana Eugene Labor/Delivery Information Number of Babies in Womb: 1 Steroids Given: None Reason Steroids Not Administered: N/A Group Beta Strep: Positive Antibiotics Administered: Yes Number of Doses of Antibiotics: 1 Rubella Status: Immune Blood Type: A+ Varicella Immunity: Immune Medication in Delivery: nitrous Born En Route: No Maternal Complications: None Shoulder Dystocia: No Stages of Labor Onset of Labor Date: 03/02/24 Onset of Labor Time: 19:50 Complete Dilatation Date: 03/03/24 Complete Dilatation Time: 02:30 Labor - Stage 1 Duration: 6 hours and 40 minutes ROM Baby A: 03/03/24 ROM Baby A: 02:46 ROM Total Time- Baby A: [id number] Delivery Date-Baby A: 03/03/24 Infant Delivery Time-Baby A: 03:05 Labor Stage 2 Duration: 35 minutes Placenta Delivery Date-Baby A: 03/03/24 Placenta Delivery Time-Baby A: 03:09 Labor-Stage 3 Duration: 4 minutes Total Length of Labor-Baby A: 7 hours and 15 minutes Placenta Cultured: No Placenta Status: Delivered Baby A Gender: Male Gestational Status: Term (39-41.6 wks) Gestational Age in Weeks/Days: 40 Weeks and 4 Days weight: 7 lb 1.229 oz Length-Baby A: 18.9 in Head Circumference-Baby A: 13.98 in Score-1 Minute Interval(Baby A) Heart Rate-1 minute: 100 BPM or Greater Respiratory Effort- 1 minute: Spontaneous/Strong Cry Muscle Tone-1 minute: Active Movement Reflex Response-1 minute: Prompt Response Color-1 minute: Bluish Hands or Feet Total Score-1 minute: 9 Score-5 Minute Interval(Baby A) Heart Rate- 5 minute: 100 BPM or Greater Respiratory Effort-5 minute: Spontaneous/Strong Cry Muscle Tone-5 minute: Active Movement Reflex Response-5 minute: Prompt Response Color-5 minute: Bluish Hands or Feet Total Score- 5 minute: 9
[2024-03-04] MEDS: Ibuprofen 600 MG TAB PO (07:55)
[2024-03-04] MEDS: Acetaminophen 325 MG TAB 650 MG PO (07:56)
[2024-03-04 08:49] VITALS: BP 106/66; PULSE 67; RESP 16; TEMP 36.6; O2SAT 97
--- NOTE | 2024-03-04 11:16 | W.PM.OBPNV1 ---
Date of service: 03/04/24 Time of Service: 11:16 Assessment and Plan Assessment and plan (1) Term of male : Status: Acute Assessment and plan: Caring for baby independently. Pain is managed well with oral analgesics. Voiding without difficulty. well. A - stable mother and baby , Post day 1 P - Discharge to home tomorrow. Routine post instructions. [facility] Subjective Subjective Interval history: Mario feels well. Baby is being observed due to receiving one dose of antibiotic prior to delivery. Patient comments: No complaints Patient's Mood: good [place] baby status: Doing well [place] feeding status: Exclusively breast feeding Exam Physical Exam Vital signs: Temp Pulse Resp BP Pulse Ox 97.9 F 67 16 106/66 97 03/04/24 08:49 03/04/24 08:49 03/04/24 08:49 03/04/24 08:49 03/04/24 08:49 Vital Signs Reviewed: Yes Constitutional Constitutional: no acute distress HEENT Exam HEENT Exam: Normal Respiratory Exam Respiratory Exam: Normal Cardiovascular Exam Cardiovascular Exam: Normal Fundal Exam Fundus: Below Umbilicus and Firm Extremities Exam Extremity Exam: Normal Back/Spine/Pelvis Exam Back Exam: Normal Skin Exam Skin Exam: Normal Psychiatric Exam Psychiatric Exam: Normal Results Hemoglobin/Hematocrit: Hgb 11.4 g/dL (11.2-15.7) 03/02/24 23:16 Hct 34.1 % (36.0-46.0) L 03/02/24 23:16 Abnormal Lab Findings: Abnormal Labs 03/02/24 23:16 RBC 3.92 L Hct 34.1 L
[2024-03-04 20:30] VITALS: BP 121/74; PULSE 76; RESP 16; TEMP 36.9; O2SAT 97
--- NOTE | 2024-03-05 06:34 | NUR.NOTE ---
Nursing Note: Pt denies pain this shift. Independent with breast feeding. Physical assessment WNL. Plan is for discharge today.
[2024-03-05 08:30] VITALS: BP 110/80; PULSE 82; RESP 12; TEMP 36.8
--- NOTE | 2024-03-05 13:26 | DSE_ITS ---
Date of service: 03/05/24 Time of Service: 13:26 DS: Diagnosis Discharge Diagnosis (1) Term of male : Status: Acute Asessment and Plan: Caring for baby independently. Pain is managed well with oral analgesics. Voiding without difficulty. well. A - stable mother and baby , Post day 2 P - Discharge to home today. Routine post instructions. [facility] Discharge Plan Disposition Patient Disposition: Home Condition: Good Discharge Details Reason For Visit: Labor Admit Date/Time: 03/02/24 23:07 Admit Provider: Deborah Hutton Attending Provider: Deborah Hutton Primary Care Provider: Charlee Newell Home Meds and New Rx's Prescriptions: No Action PNV #[id number] 30 mg iron-10 mg iron-1 mg capsule 1 cap PO DAILY ferrous sulfate 325 mg (65 mg iron) tablet,delayed release (DR/EC) 325 mg PO DAILY Qty: 60 5RF Discharge Instructions Stand Alone Forms: BC Post Vaginal Deliver Activity:: Activity as Tolerated Equipment/Supplies:: No Equipment Needed Diet:: As Tolerated Discharge Orders Discharge Orders: Discharge Order (Routine); Ordered 03/05/24 Ordered By: Deborah Hutton Discharge Data Discharge Date/Time-TO BE ENTERED AT DEPARTURE: 03/05/24 11:40 OB:DS Summary Summary Vaginal Delivery Method: Spontaneaous Episiotomy Description: None Laceration Description: None Contraception Discussed Contraception Discussed: Yes Contraceptive Plan: Vasectomy, Gender-Baby A: Male weight: 7 lb 1.229 oz Status at Discharge Functional status at discharge: independent ambulation Overall status at discharge: patient is back to baseline Mental Status: mental status grossly normal Speech and Movement: speech and movement normal Mood: congruent mood Affect: normal affect Quality:SDOH Health Related Social Needs: No Data to Display Exam Physical Exam Vital signs: Temp Pulse Resp BP Pulse Ox 98.2 F 82 12 110/80 97 03/05/24 08:30 03/05/24 08:30 03/05/24 08:30 03/05/24 08:30 03/04/24 20:30 Vital Signs Reviewed: Yes Constitutional Constitutional: no acute distress HEENT Exam HEENT Exam: Normal Respiratory Exam Respiratory Exam: Normal Cardiovascular Exam Cardiovascular Exam: Normal Fundal Exam Fundus: Below Umbilicus and Firm Rectal Exam Rectal Exam: Normal Extremities Exam Extremity Exam: Normal Skin Exam Skin Exam: Normal Psychiatric Exam Psychiatric Exam: Normal PFSH All Active Problems (Updated 03/04/24 @ 11:18 by Deborah Hutton CNM) Term of male (Acute) Group B streptococcal infection during (Acute) Medical History (Updated 03/04/24 @ 11:18 by Deborah Hutton CNM) ASB (asymptomatic bacteriuria) Missed menses Tear of lateral meniscus of left knee Chondromalacia of lateral femoral condyle Left ACL tear Vaginal delivery (05/13/13) x4 Hx of ovarian cyst History of anemia Hx of hypotension History of COVID-19 10/19 MCL sprain of left knee Surgical History Status post reconstruction of anterior cruciate ligament (12/30/21) Revision ACL reconstruction with quadriceps allograft, lateral meniscus repair and extensive synovectomy Dr. Crouch Hx of wisdom tooth extraction History of repair of ACL 2006 Dr Krishnamurthy Tonsillectomy and adenoidectomy CHILD `25 YRS AGO Repair, ACL L KNEE W/O C/O. Family History Mother Breast cancer in remission Maternal Grandmother Breast cancer Colon cancer Cancer, uterine Diabetes Paternal Grandfather Cancer Heart disease Paternal Grandmother Heart disease Social History Smoking/Tobacco Use Status: Never Smoking risk assessment performed?: Yes Alcohol Intake: current Alcohol Intake frequency: holidays/special occasions only Drug use: Never Substance use type: does not use Housing: house Current gender identity: female Do you feel safe at home: Yes Do you feel safe in your relationship?: Yes History History 6 Para 4 Hx # Term Pregnancies 4 Multiple births 0 Hx # Pregnancies 0 Ectopic pregnancies 0 AB induced 0 Hx Number of Living Children 4 AB spontaneous 1 Past Pregnancies Del. Date GA/Weeks # Preg Succ Route Wgt Sex Labor Lgth Anesth esia Location Prov Complic 05/11/08 40 No Yes vaginal 7 lb 12 oz Male 10 hrs [place], [place] 03/16/11 41 No Yes vaginal 7 lb 8 oz Male <10 hrs [place] 05/13/13 40 No Yes vaginal 6 lb 12 oz Female 8 hrs [facility] 10/12/14 40 No Yes vaginal 7 lb 10 oz Male 12 hrs [place] Delivery Date: 05/11/08 Last Updated by: Theresa Chapin unmedicated nml [place] Delivery Date: 03/16/11 Last Updated by: Theresa Chapin nml [place] Delivery Date: 05/13/13 Last Updated by: Theresa Chapin nml [place] Delivery Date: 10/12/14 Last Updated by: Theresa Chapin nml Uri DS: Data Vitals/I&O Vitals and I&O: Vital Signs Temperature 98.2 F 03/05/24 08:30 Temperature Source Oral 03/05/24 08:30 Pulse 82 03/05/24 08:30 Pulse Rhythm Regular 03/05/24 08:30 Respiratory Rate 12 03/05/24 08:30 Blood Pressure 110/80 03/05/24 08:30 Blood Pressure Mean 90 03/05/24 08:30 Pulse Oximetry 97 03/04/24 20:30 Oxygen Delivery Method Room Air 03/02/24 23:26 Oxygen Flow Rate 0 03/02/24 23:26 Pain Level 4 03/03/24 23:49 Comment deferred, pt 03/03/24 05:00
== END 2024-03-05 11:40 | disposition home or self-care (01) | DRG 805 ==
PROVIDERS: Admitting Provider Advanced Practice Midwife; PCP Nurse Practitioner Family; Visit Provider Advanced Practice Midwife
DX: O98.82 Other maternal infectious and parasitic diseases complicating childbirth (principal); O99.42 Diseases of the circulatory system complicating childbirth; Z37.0 Single live birth; B95.1 Streptococcus, group B, as the cause of diseases classified elsewhere; O99.02 Anemia complicating childbirth; D64.9 Anemia, unspecified; Z3A.40 40 weeks gestation of pregnancy; I73.00 Raynaud's syndrome without gangrene
CPT/HCPCS: 85027; 86850; 86900; 86901; J2540

== ENCOUNTER 2025-02-24 12:39 | Outpatient (REF) | payer BC, SELFPAY ==
[2025-02-24 16:17] LABS: Abs Immature Grans 0.02 10^3/uL (0.0-0.06); HCT 36.9 % (36.0-46.0); HGB 12.5 g/dL (11.2-15.7); Immature Grans % 0.4 %; MCH 28.7 pg (27.0-33.0); MCHC 33.9 % (32.0-36.0); MCV 85 fL (80-95); MPV 10.1 fL (8.0-11.0); Platelet Count 218 10^3/uL (130-400); RBC 4.36 10^6/uL (3.93-5.22); RDW 13.2 % (11.7-14.6); RDW-SD 41.3 fL; WBC 4.97 10^3/uL (4.4-10.8)
[2025-02-24 16:37] LABS: Iron 102 ug/dL (50-170); Total Iron Binding Capacity 362 ug/dL (250-450); Transferrin Sat 28 % (15-50)
[2025-02-24 16:58] LABS: Hemoglobin A1C 5.1 % (<5.7)
[2025-02-24 17:03] LABS: Calculated LDL 110 mg/dL (<100); Cholesterol 182 mg/dL (<200); Ferritin 28 ng/mL (8-252); HDL Cholesterol 65 mg/dL (>or=50); TSH (W/Ref FT4) 1.82 uIU/mL (0.36-3.74); Triglyceride 37 mg/dL (<150); Vitamin B12 296 pg/mL (193-986); Vitamin D 25 Total 30 ng/mL (30-100)
[2025-02-25 09:38] LABS: Transferrin 266 mg/dL (201-352)
== END 2025-02-24 12:40 | disposition home or self-care (01) ==
LOC: NCHCN 12:39
PROVIDERS: PCP Nurse Practitioner Family; Visit Provider Nurse Practitioner Family
DX: Z13.220 Encounter for screening for lipoid disorders (principal); Z13.1 Encounter for screening for diabetes mellitus; R53.82 Chronic fatigue, unspecified
CPT/HCPCS: 80061; 82306; 82607; 82728; 83036; 83540; 83550; 84443; 84466; 85025